=== PATIENT | female | born 1950 | race Caucasian/White ===

== ENCOUNTER 2017-10-04 22:08 | Inpatient (IN) | payer OTHER ==
[~2017-10-04] VITALS: Ht 157.5 cm; Wt 110.8 kg
[~2017-10-04 22:08] MED LIST: COLACE100 MG PO; CYMBALTA60 MG PO; MOBIC15 MG PO; ZESTORETIC 10-1 EAC1 PO
[2017-10-05 07:23] VITALS: BP 147/73
[2017-10-05 13:10] VITALS: BP 163/65
[2017-10-05 15:44] VITALS: BP 138/65
[2017-10-05 19:39] VITALS: BP 128/69
[2017-10-06 00:20] VITALS: BP 128/57
[2017-10-06 04:20] VITALS: BP 145/66
[2017-10-06 06:00] LABS: HEMATOCRIT 36.7 % (36.0-46.0); MCV 92.7 FL (83-99)
[2017-10-06 06:16] LABS: CHLORIDE 101 MEQ/L (99-109); CREATININE 0.7 MG/DL (0.6-1.3); GFR ESTIMATE (CALCULATED) > 59 mL/min/; GLUCOSE 114 mg/dL (70-99); POTASSIUM 4.2 MEQ/L (3.7-5.4); SODIUM 138 MEQ/L (136-147); UREA NITROGEN (BUN) 16 mg/dL (9-23)
[2017-10-06 08:00] VITALS: BP 126/60
[2017-10-06 16:32] VITALS: BP 165/75
[2017-10-06 20:10] VITALS: BP 172/70
[2017-10-07 00:10] VITALS: BP 161/67
[2017-10-07 04:15] VITALS: BP 155/67
[2017-10-07 06:28] LABS: HEMATOCRIT 36.2 % (36.0-46.0); MCV 91.4 FL (83-99)
[2017-10-07] MEDS ORDERED: OXYCODONE HCL5 MG PO (08:24)
[2017-10-07] MEDS ORDERED: XARELTO10 MG PO (08:24)
[2017-10-07 09:14] VITALS: BP 115/56
[2017-10-07 14:53] VITALS: BP 106/55
== END 2017-10-07 14:45 | DRG 470 ==
LOC: ENRESERV 22:08 → 2SOUTH 10-05 06:44 → 3WEST 10-05 12:52 → 2SOUTH 10-05 15:18 → 3WEST 10-07 14:45
PROVIDERS: Orthopaedic Surgery
PROC: 0SRD0J9 Replacement of Left Knee Joint with Synthetic Substitute, Cemented, Open Approach (ICD-10-PCS; principal; 2017-10-05)
DX: M17.12 Unilateral primary osteoarthritis, left knee (principal); M06.9 Rheumatoid arthritis, unspecified; E11.9 Type 2 diabetes mellitus without complications; I10 Essential (primary) hypertension; E66.9 Obesity, unspecified; Z68.41 Body mass index [BMI] 40.0-44.9, adult; G47.30 Sleep apnea, unspecified; F32.9 Major depressive disorder, single episode, unspecified
CPT/HCPCS: 80048; 82948; 85014; 85018; 94660; C1713; J0131; J0690; J1100; J1885; J2250; J2405; J2795; J3010; J7030; J7050; J7120; Q0175